=== PATIENT | male | born 1975 | race Caucasian/White ===

== ENCOUNTER → 2017-03-10 | Outpatient (CLI) | payer OTHER ==
--- NOTE | 2017-03-12 14:22 | CPEEG ---
[f rep st] ELECTROENCEPHALOGRAM ELECTROENCEPHALOGRAM. DATES OF STUDY: 03/10/2017. DATE OF INTERPRETATION: 03/11/2017. INTERPRETATION: This 4-hour video EEG recording is abnormal due to the presence of generalized atypical spike and wave discharges. 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 During the video EEG monitoring session, the patient did not have any clinical events. REPORT: This 4-hour video EEG contains 9 Hz alpha to the posterior head regions. The primary feature of this recording was the presence of generalized atypical spike and wave discharges. These were composed of [id number] amplitude spike and wave discharges with maximal amplitudes over the anterior head regions. With photic stimulation, the patient had activation of a generalized spike and wave discharge at 20 hertz (photoparoxysmal response). There was continued activation during hyperventilation as well. The patient became drowsy and fell asleep during this study. During drowsiness and sleep, there was continued activation of generalized atypical spike wave discharges. During the video EEG monitoring session, the patient did not have any clinical events. /[id number]/MODL MTDD
== END ==
LOC: FCPNEURO 09:07
PROVIDERS: ATTEND Psychiatry & Neurology Neurology
DX: G40.909 Epilepsy, unspecified, not intractable, without status epilepticus (principal)